=== PATIENT | female | born 1940 | race African-American/Black ===

== ENCOUNTER 2017-02-23 09:37 | Emergency (ER) | payer BC, OTHER ==
[2017-02-23 09:41] VITALS: TEMP 98.3; BMI 30.9
[2017-02-23] MEDS ORDERED: ONDANSETRON 4 MG/2 ML VIAL IVPB ONE (10:44)
--- NOTE | 2017-02-23 10:46 | PDOC ---
History of Present Illness - General Chief Complaint: Pain Stated Complaint: ABD PAIN History Source: Patient Exam Limitations: No Limitations - History of Present Illness Travel History: Yes (recently returned from [place]) Initial Comments: 02/23/17 10:56 76 yo F with PMhx of GERD presents with several month history of epigastric pain. She describes non-radiating constant 8/10 epigastric pain. Aggravated by eating and no alleviating factors. Accompanied by nausea. She states that she recently returned from [place] where she was seen for this issue and was told she has hiatal hernia that needs to be addressed. Dr. Haines is her GI doc. Had normal BM this morning which was normal color/consistency with no blood. No urinary symptoms. Denies fevers, chillls, CP, SAXENA, SOB, palpitations or vomiting. Timing/Duration: reports: constant Quality: reports: moderate Abdominal Pain Onset Location: reports: epigastric Activities at Onset: reports: no specific activity Treatment Prior to Arrive: improves with: antacids Aggravating Factors: improves with: Eating Alleviating Factors: improves with: None Past History - Travel Traveled outside of the country in the last 30 days: Yes If so, where?: [place] Close contact w/someone who was outside of country & ill: No - Past Medical History Allergies/Adverse Reactions: Allergies Allergy/AdvReac Type Severity Reaction Status Date / Time aspirin AdvReac Nausea Verified 02/23/17 09:41 Home Medications: Ambulatory Orders Lansoprazole [Prevacid] 30 mg PO DAILY 12/18/15 GI Disorders: Yes (REFLUX) Suicide Attempt (Hx): No - Surgical History Cholecystectomy: Yes - Psycho/Social/Smoking Cessation Hx Anxiety: No Suicidal Ideation: No Smoking History: Never smoked Hx Alcohol Use: Yes (SOCIAL) Drug/Substance Use Hx: No Substance Use Type: None Abd/GI Specific PMHX - Complaint Specific PMHX Colitis: No Diverticulitis: No Gall Bladder Disease: No GERD: Yes Hepatitis: No Irritable Bowel Synd (IBS): No Pancreatitis: No Review of Systems - Review of Systems Able to Perform ROS?: Yes Is the patient limited Greek proficient: No Constitutional: No: Symptoms Reported HEENTM: No: Symptoms Reported Respiratory: No: Symptoms reported Cardiac (ROS): No: Symptoms Reported ABD/GI: Yes: Nausea, Abdominal cramping : No: Symptoms Reported Musculoskeletal: No: Symptoms Reported Integumentary: No: Symptoms Reported Neurological: No: Symptoms reported Psychiatric: Yes: Anxiety Endocrine: No: Symptoms Reported Hematologic/Lymphatic: No: Symptoms Reported All Other Systems: Reviewed and Negative *Physical Exam - Vital Signs Last Vital Signs Temp Pulse Resp BP Pulse Ox 98.3 F 105 H 20 134/88 98 02/23/17 09:38 02/23/17 09:38 02/23/17 09:38 02/23/17 09:38 02/23/17 09:38 - Physical Exam General Appearance: Yes: Mild Distress HEENT: positive: EOMI, MATIAS, Other (bilat. cataracts) Respiratory/Chest: positive: Lungs Clear, Normal Breath Sounds. negative: Respiratory Distress, Accessory Muscle Use Cardiovascular: positive: Regular Rhythm, Regular Rate, S1, S2. negative: Edema , JVD, Murmur Vascular Pulses: Dorsalis-Pedis (R): 2+, Doralis-Pedis (L): 2+ Gastrointestinal/Abdominal: positive: Normal Bowel Sounds, Soft, Tenderness ( epigastric), Other (obese) Musculoskeletal: positive: Normal Inspection. negative: CVA Tenderness Extremity: negative: Calf Tenderness Integumentary: positive: Normal Color, Dry, Warm Neurologic: positive: Fully Oriented, Alert ED Treatment Course - LABORATORY CBC & Chemistry Diagram: 02/23/17 11:15 02/23/17 11:15 - RADIOLOGY Radiograph Interpretation: 02/23/17 15:14 * RAD/ABDOMEN [id number] Abdomen: Abdominal and epigastric pain. Imaging reveals right upper quadrant clips, scoliosis, degenerative changes, elevated right hemidiaphragm with mamillation, large heart, pelvic phleboliths and a nonspecific bowel pattern with no sign of a true obstruction. Free air is not seen. Organomegaly or calcifications of significance or not visualized. There are costal cartilage calcifications. There is some retained stool. The bones and soft tissues are intact. Impression: Right upper quadrant clips. Elevated right hemidiaphragm. Large heart. No acute abdominal pathology. If symptoms persist, further imaging with CT may be of help. Reported By: Noah Ortiz MD 02/23/17 1203 * US/ABDOMEN US -LIMITED Right upper quadrant abdomen ultrasound Impression: Status post cholecystectomy. The common bile duct demonstrates nonspecific dilatation with a 0.9 cm diameter. Minimal to mild intrahepatic biliary tract dilatation is seen. There is no gross sonographic evidence of choledocholithiasis. The partially imaged pancreas demonstrates no obvious abnormality. Reported By: Fei Hudson MD 02/23/17 [id number] Medical Decision Making - Medical Decision Making 02/23/17 11:08 76 yo F with PMhx of GERD presents with several month history of epigastric pain. Will send for abdominal upright xray to assess hernia. Labs sent- CBC, CMP , Lipase and trops. Given Zofran, pepcid, and Maalox. 02/23/17 15:16 * Abd Xray -shows no acute abdominal pathology * Elevated Bilirubin needs to follow up with GI * Abd US shows :The common bile duct demonstrates nonspecific dilatation with a 0.9 cm diameter. Minimal to mild intrahepatic biliary tract dilatation is seen. There is no gross sonographic evidence of choledocholithiasis. The partially imaged pancreas demonstrates no obvious abnormality. *DC/Admit/Observation/Transfer Diagnosis at time of Disposition: Epigastric abdominal pain - Discharge Dispostion Disposition: HOME Admit: No - Referrals Referrals: Ziggy Toribio [Primary Care Provider] - John Haines MD [Staff Physician] - - Patient Instructions Printed Discharge Instructions: DI for Hiatal Hernia Additional Instructions: Need to follow with GI in one week. Increase activity as tolerated. Regular diet. Continue home meds as directed. Return to ED if symptoms worsen.
[2017-02-23] MEDS ORDERED: ONDANSETRON 4 MG/2 ML VIAL ONE (10:48)
[2017-02-23] MEDS ORDERED: MAG HYDROX/AL HYDROX/SIMETH 30 ML UNIT-DOSE CUP PO ONE (10:53)
[2017-02-23] MEDS ORDERED: FAMOTIDINE 20 MG/50 ML IVPB 50 ML IVPB ONE ×2 (10:53→11:32)
[2017-02-23 11:25] LABS: BASOPHIL 0.8 % (0-2.0); EOSINOPHIL 1.3 % (0-4.5); MCH 28.7 pg (25.7-33.7); MCHC 32.9 g/dl (32.0-36.0); MEAN CELL VOLUME 87.2 fl (80-96); MEAN PLT VOLUME 7.6 fl (7.5-11.1); NEUTROPHILS 50.4 % (42.8-82.8); PLATELET COUNT 237 K/MM3 (134-434); RDW 14.5 % (11.6-15.6); WHITE BLOOD COUNT 5.4 K/mm3 (4.0-10.0)
[2017-02-23 11:27] LABS: URINE APPEARANCE CLEAR; URINE BILIRUBIN NEGATIVE (NEGATIVE); URINE BLOOD NEGATIVE (NEGATIVE); URINE COLOR LTYELLOW; URINE GLUCOSE (UA) NEGATIVE (NEGATIVE); URINE KETONE NEGATIVE (NEGATIVE); URINE LEUK ESTERASE NEGATIVE (NEGATIVE); URINE NITRITE NEGATIVE (NEGATIVE); URINE PROTEIN NEGATIVE (NEGATIVE); URINE UROBILINOGEN NEGATIVE E.U./dl (0.2-1.0)
[2017-02-23] MEDS ORDERED: MAG HYDROX/AL HYDROX/SIMETH 30 ML UNIT-DOSE CUP ONE (11:32)
--- NOTE | 2017-02-23 11:39 | PDOC ---
Attending Attestation - Resident Resident Name: Garcia Moreno - ED Attending Attestation I have performed the following: I have examined & evaluated the patient, The case was reviewed & discussed with the resident, I agree w/resident's findings & plan, Exceptions are as noted - HPI HPI: 02/23/17 11:38 Agree with the resident's HPI as documented in the electronic medical record. - Physicial Exam PE: 02/23/17 11:38 Agree with the resident's physical examination as documented in the electronic medical record. - Medical Decision Making 02/23/17 11:38 76-year-old female with history of GERD and hiatal hernia presents to the emergency Department with complaints of epigastric pain that his been ongoing for more than a year but over the past month that his increased in intensity. It is localized to the epigastrium and she has no nausea or vomiting. Differential diagnosis includes but is not limited to: GERD, hiatal hernia, ACS , pancreatitis, gastritis. Plan: 1. Labs 2. EKGshows normal sinus rhythm at 75 bpm with a normal axis, normal intervals and no acute ST segment changes 3. Pepcid and Maalox 4. Antiemetics 5. IV fluids for hydration 6. Observe and reevaluate
[2017-02-23 11:50] LABS: ALBUMIN 3.9 g/dl (3.4-5.0); BILIRUBIN,TOTAL 1.5 mg/dL (0.2-1.0); CALCIUM 9.1 mg/dL (8.5-10.1); CREATININE 1.1 mg/dL (0.55-1.02); TOT PROT 7.8 g/dl (6.4-8.2)
[2017-02-23 15:39] VITALS: BP 150/76; PULSE 74
--- NOTE | 2017-02-23 17:13 | EKG ---
Test Reason : Blood Pressure : / mmHG Vent. Rate : 073 BPM Atrial Rate : 073 BPM P-R Int : 164 ms QRS Dur : 068 ms QT Int : 382 ms P-R-T Axes : 067 007 021 degrees QTc Int : 420 ms NORMAL SINUS RHYTHM POSSIBLE LEFT ATRIAL ENLARGEMENT BORDERLINE ECG WHEN COMPARED WITH ECG OF 15-JUL-2015 11:52, NO SIGNIFICANT CHANGE WAS FOUND Confirmed by GATO GIRALDO MD ([id number]) on 02/23/2017 5:12:57 PM Referred By: Confirmed By:GATO GIRALDO MD
== END 2017-02-23 15:39 | disposition home or self-care (01) ==
LOC: JER 09:37
PROC: 3E033GC Introduction of Other Therapeutic Substance into Peripheral Vein, Percutaneous Approach (ICD-10-PCS; principal; 2017-02-23)
DX: K21.9 Gastro-esophageal reflux disease without esophagitis (principal); R10.13 Epigastric pain; R17 Unspecified jaundice
CPT/HCPCS: 36415; 74020-TC; 76705-TC; 80053; 81003; 83690; 84484; 85025; 93005; 93010; 96365; 96375; 99282-25

== ENCOUNTER 2017-03-24 13:13 | Emergency (ER) | payer BC ==
[2017-03-24 13:18] VITALS: BP 150/78; PULSE 95; TEMP 98.1; BMI 30.3
--- NOTE | 2017-03-24 14:48 | PDOC ---
History of Present Illness - General Chief Complaint: Rash Stated Complaint: RASHES ON BODY Time Seen by Provider: 03/24/17 14:47 History Source: Patient Exam Limitations: No Limitations - History of Present Illness Initial Comments: CHIEF COMPLAINT: 76 y/o afebrile female with PMH GERD (on daily PPI) c/o itchy rash to her body for 1 week. HISTORY OF PRESENT ILLNESS: The patient states she was in [place] for 4 months and returned in February. She states last week she developed an itchy rash all over her body, told her GI doctor and he prescribed benadryl, fluconazole and cream. She states it isn't helping. She is still itchy. She denies f/c, n/v/d , cough, facial swelling, difficulty breathing, CP, SOB, abd pain. she states the rash is not itchy at night. She does not have itching in between her fingers. Vital signs on arrival are notable for pulse of 95. REVIEW OF SYSTEMS: GENERAL/CONSTITUTIONAL: No fever/chills. No weakness. No weight change. HEAD, EYES, EARS, NOSE AND THROAT: No change in vision. No ear pain or discharge. No sore throat. No face or tongue swelling. CARDIOVASCULAR: No chest pain or shortness of breath. RESPIRATORY: No cough, wheezing, or hemoptysis.. MUSCULOSKELETAL: No joint or muscle swelling or pain. No neck or back pain. SKIN: +itchy rash all over body NEUROLOGIC: No headache, vertigo, loss of consciousness, or loss of sensation. PHYSICAL EXAM: GENERAL: The patient is awake, alert, and fully oriented, in no acute distress. HEAD: Normal with no signs of trauma. ENT: Pupils equal, round and reactive to light, extraocular movements intact, sclera anicteric, conjunctiva clear. No facial or tongue swelling. No angioedema. Airway patent. LUNGS: CTA EXTREMITIES: Normal range of motion, no edema. NEUROLOGICAL: Normal speech, normal gait. SKIN: peeling, non-erythematous skin seen on trunk, breasts, back, buttocks, legs and forearms. No erythema. No streaking. No papules or pustules Past History - Past Medical History Allergies/Adverse Reactions: Allergies Allergy/AdvReac Type Severity Reaction Status Date / Time aspirin AdvReac Nausea Verified 03/24/17 13:16 Home Medications: Ambulatory Orders Lansoprazole [Prevacid] 30 mg PO DAILY 12/18/15 Prednisone [Deltasone -] 40 mg PO DAILY #8 tablet 03/24/17 GI Disorders: Yes (REFLUX) Suicide Attempt (Hx): No - Surgical History Cholecystectomy: Yes - Psycho/Social/Smoking Cessation Hx Anxiety: No Suicidal Ideation: No Smoking History: Never smoked Have you smoked in the past 12 months: No Information on smoking cessation initiated: No Hx Alcohol Use: No Drug/Substance Use Hx: No Substance Use Type: None *Physical Exam - Vital Signs Last Vital Signs Temp Pulse Resp BP Pulse Ox 98.1 F 95 H 18 150/78 100 03/24/17 13:16 03/24/17 13:16 03/24/17 13:16 03/24/17 13:16 03/24/17 13:16 Medical Decision Making - Medical Decision Making A/P: 76 y/o female with rash that appears to be dry peeling skin. Plan is as follows: 1. IM decadrone Will discharge to home with 4 day course of steroids. instructed her to d/c her other medications for these symptoms. Suggested she apply aloe to the affected areas and f/u with her doctor within 1 week. Pt instructed to return to the ER with any worsening or concerning symptoms. The patient verbalizes understanding of all instructions, has no further questions and is awaiting discharge. *DC/Admit/Observation/Transfer Diagnosis at time of Disposition: Rash - Discharge Dispostion Disposition: HOME Condition at time of disposition: Good - Referrals Referrals: Ziggy Toribio [Primary Care Provider] - Call tomorrow - Patient Instructions Printed Discharge Instructions: DI for Rash Additional Instructions: Discharge Instructions: -A prescription was sent to your pharmacy; start taking tomorrow and complete all 4 days -Apply aloe vera to your skin twice a day for the next week -Follow up with your doctor if no relief in symptoms -Return to the ER with any worsening or concerning symptoms.
[2017-03-24] MEDS ORDERED: DEXAMETHASONE SOD PHOSPHATE 10 MG/1 ML VIAL IM ONE (15:25)
[2017-03-24] MEDS ORDERED: DEXAMETHASONE SOD PHOSPHATE 10 MG/1 ML VIAL ONE (15:29)
== END 2017-03-24 15:34 | disposition home or self-care (01) ==
LOC: JERFT 13:13
PROC: 3E0233Z Introduction of Anti-inflammatory into Muscle, Percutaneous Approach (ICD-10-PCS; principal; 2017-03-24)
DX: R21 Rash and other nonspecific skin eruption (principal)
CPT/HCPCS: 96372; 99281-25

== ENCOUNTER 2020-10-02 07:07 | Emergency (ER) | payer OTHER ==
[2020-10-02 07:33] VITALS: TEMP 97.4; BMI 29.2
[2020-10-02] MEDS ORDERED: MAG HYDROX/AL HYDROX/SIMETH 30 ML UNIT-DOSE CUP PO ONE (08:06)
[2020-10-02] MEDS ORDERED: SODIUM CHLORIDE 1,000 ML IV STA (08:06)
[2020-10-02] MEDS ORDERED: FAMOTIDINE 20 MG/50 ML IVPB 20 MG/50 ML MG IVPB ONE ×2 (08:06→08:41)
[2020-10-02] MEDS ORDERED: MAG HYDROX/AL HYDROX/SIMETH 30 ML UNIT-DOSE CUP ONE (08:41)
[2020-10-02 08:50] LABS: BASO % 0.8 % (0-2.0); EOS % 1.8 % (0-4.5); HEMATOCRIT 39.3 % (32.4-45.2); LYMPH % 28.9 % (8-40); MCH 28.9 pg (25.7-33.7); MCHC 33.2 g/dl (32.0-36.0); MEAN PLT VOLUME 7.6 fl (7.5-11.1); MONO % 5.7 % (3.8-10.2); NEUT % 62.8 % (42.8-82.8); PLATELET COUNT 257 K/MM3 (134-434); RBC 4.51 M/mm3 (3.60-5.2); RDW 14.4 % (11.6-15.6); WHITE BLOOD COUNT 5.2 K/mm3 (4.0-10.0)
[2020-10-02 09:00] LABS: INR 1.03 (0.83-1.09); PROTHROMBIN TIME (PATIENT) 12.5 SEC (9.7-13.0)
[2020-10-02 09:03] LABS: ACTIVATED PTT 31.1 SECONDS (25.2-36.5)
[2020-10-02 09:15] LABS: CHLORIDE 107 mmol/L (98-107); POTASSIUM 4.3 mmol/L (3.5-5.1); SODIUM 142 mmol/L (136-145)
[2020-10-02 09:17] LABS: ALBUMIN 3.8 g/dl (3.4-5.0); ANION GAP 6 MMOL/L (8-16); CALCIUM 9.6 mg/dL (8.5-10.1); CO2 29 mmol/L (21-32); GLUCOSE,RANDOM 92 mg/dL (74-106)
[2020-10-02 09:18] LABS: BLOOD UREA NITROGEN 11.7 mg/dL (7-18); LIPASE 97 U/L (73-393)
[2020-10-02 09:21] LABS: CREATININE 1.1 mg/dL (0.55-1.3); SGOT/AST 22 U/L (15-37); SGPT/ALT 19 U/L (13-61)
[2020-10-02 09:22] LABS: TOT PROT 7.7 g/dl (6.4-8.2)
[2020-10-02 09:23] LABS: ALK PHOS 105 U/L (45-117)
[2020-10-02 11:25] VITALS: BP 158/78; PULSE 87
== END 2020-10-02 11:26 | disposition home or self-care (01) ==
LOC: JER 07:07
PROC: 3E033NZ Introduction of Analgesics, Hypnotics, Sedatives into Peripheral Vein, Percutaneous Approach (ICD-10-PCS; principal; 2020-10-02)
PROC: 3E0337Z Introduction of Electrolytic and Water Balance Substance into Peripheral Vein, Percutaneous Approach (ICD-10-PCS; 2020-10-02)
DX: R10.13 Epigastric pain (principal)
CPT/HCPCS: 36415; 71045-TC-FY; 74177-TC; 80053; 82550; 82553; 83605; 83690; 84484; 85025; 85610; 85730; 93005; 93010; 99285-25; Q9967

== ENCOUNTER 2020-10-07 14:40 | Emergency (ER) | payer OTHER ==
[2020-10-07 14:54] VITALS: BP 160/65; PULSE 93; BMI 29.2
[2020-10-07] MEDS ORDERED: predniSONE 20 MG TABLET (UD) PO ONE (15:22)
[2020-10-07] MEDS ORDERED: diphenhydrAMINE HCL 25 MG CAPSULE (FP) PO ONE ×2 (15:22→15:31)
[2020-10-07] MEDS ORDERED: predniSONE 20 MG TABLET (UD) ONE (15:31)
== END 2020-10-07 15:38 | disposition home or self-care (01) ==
LOC: JERFT 14:40
DX: T50.8X5A Adverse effect of diagnostic agents, initial encounter (principal)
CPT/HCPCS: 99284-25

== ENCOUNTER 2020-10-13 06:50 | Emergency (ER) | payer OTHER ==
[2020-10-13 06:59] VITALS: BP 169/82; PULSE 105; TEMP 98.6; BMI 27.4
[2020-10-13] MEDS ORDERED: LIDOCAINE HCL 2% JELLY (30 ML/TUBE) TP ONE (07:53)
[2020-10-13] MEDS ORDERED: diphenhydrAMINE HCL 25 MG CAPSULE (FP) PO ONE ×2 (07:53→08:01)
[2020-10-13] MEDS ORDERED: LIDOCAINE HCL 2% JELLY (5 ML/TUBE) ONE (08:01)
== END 2020-10-13 08:11 | disposition home or self-care (01) ==
LOC: JER 06:50
DX: R21 Rash and other nonspecific skin eruption (principal)
CPT/HCPCS: 99284-25

== ENCOUNTER 2024-01-12 08:18 | Emergency (ER) | payer OTHER ==
[2024-01-12 08:33] VITALS: TEMP 98.2; BMI 30.2
[2024-01-12 09:08] VITALS: PULSE 66
[2024-01-12 10:13] LABS: BASO % 0.6 % (0-2.0); EOS % 1.8 % (0-4.5); HEMATOCRIT 39.8 % (32.4-45.2); LYMPH % 31.2 % (8-40); MCH 28.6 pg (25.7-33.7); MCHC 32.6 g/dl (32.0-36.0); MEAN CELL VOLUME 87.9 fl (80-96); MEAN PLT VOLUME 7.6 fl (7.5-11.1); MONO % 5.9 % (3.8-10.2); NEUT % 60.5 % (42.8-82.8); PLATELET COUNT 242 10^3/uL (134-434); RBC 4.53 M/mm3 (3.60-5.2); RDW 14.3 % (11.6-15.6)
[2024-01-12 10:19] LABS: INR 1.02 (0.83-1.09); PROTHROMBIN TIME (PATIENT) 11.8 SEC (9.7-13.0)
[2024-01-12 10:22] LABS: ACTIVATED PTT 32.2 SECONDS (25.2-36.5)
[2024-01-12] MEDS: FAMOTIDINE 20 MG/50 ML IVPB 20 MG/50 ML MG IVPB ONE (10:30)
[2024-01-12 10:36] LABS: POTASSIUM 4.1 mmol/L (3.5-5.1)
[2024-01-12 10:38] LABS: ALBUMIN 3.4 g/dl (3.4-5.0); BLOOD UREA NITROGEN 14.7 mg/dL (7-18); CALCIUM 9.7 mg/dL (8.5-10.1)
[2024-01-12 10:43] LABS: BILIRUBIN,TOTAL 0.8 mg/dL (0.2-1)
[2024-01-12 11:39] LABS: URINE APPEARANCE CLEAR; URINE BILIRUBIN NEGATIVE (NEGATIVE); URINE COLOR YELLOW; URINE GLUCOSE (UA) NEGATIVE (NEGATIVE); URINE KETONE NEGATIVE (NEGATIVE); URINE LEUK ESTERASE NEGATIVE (NEGATIVE); URINE NITRITE NEGATIVE (NEGATIVE); URINE PROTEIN NEGATIVE (NEGATIVE); URINE UROBILINOGEN 0.2 mg/dL (0.2-1.0)
[2024-01-12 12:20] VITALS: BP 121/69; RESP 18
[2024-01-12] MEDS: ACETAMINOPHEN 1000 MG/100 ML BAG IVPB ONE (14:44)
[2024-01-12] MEDS ORDERED: FAMOTIDINE 20 MG/50 ML IVPB 20 MG/50 ML MG IVPB ONE (14:45)
== END 2024-01-12 16:33 | disposition home or self-care (01) ==
LOC: JER 08:18
PROC: 3E033GC Introduction of Other Therapeutic Substance into Peripheral Vein, Percutaneous Approach (ICD-10-PCS; principal; 2024-01-12)
DX: R42 Dizziness and giddiness (principal); R14.0 Abdominal distension (gaseous); K21.9 Gastro-esophageal reflux disease without esophagitis; R10.13 Epigastric pain; Z20.822 Contact with and (suspected) exposure to COVID-19
CPT/HCPCS: 0241U-QW; 36415; 71045-TC-FY; 74176-TC; 80053; 81003; 83605; 83690; 84484; 85025; 85610; 85730; 87086; 93005; 93010; 96365; 99285-25